=== PATIENT | female | born 1985 | race Caucasian/White ===

== ENCOUNTER 2021-03-12 20:19 | Emergency (ER) | payer OTHER, SELFPAY ==
[2021-03-12 20:29] VITALS: BP 124/89; PULSE 87; RESP 16; TEMP 36.6; O2SAT 98; BMI 28.3
--- NOTE | 2021-03-12 21:35 | ED_ITS ---
HPI - Dental/Oral General Chief complaint: Dental/Oral Stated complaint: tooth pain Time Seen by Provider: 03/12/21 21:34 History of Present Illness HPI Narrative: Patient complains of right lower dental pain for several weeks getting worse after dental procedure, no fever no swelling under the tongue no difficulty breathing or swallowing Related Data Previous Rx's Medication Instructions Recorded amoxicillin 875 mg-potassium 1 tab PO BID 7 Days #14 tab 03/12/21 clavulanate 125 mg tablet (Augmentin) ibuprofen 600 mg tablet 600 mg PO Q6H PRN #20 tab 03/12/21 oxycodone 5 mg tablet 5 mg PO Q6H PRN #10 tab 03/12/21 Allergies Allergy/AdvReac Type Severity Reaction Status Date / Time No Known Allergies Allergy Unverified 01/12/20 17:31 Review of Systems Review of Systems: Positive for toothache Negatives are no fever no chills no dizziness no weakness no headache no neck pain no sore throat no swelling under the tongue no drooling no difficulty breathing or swallowing no rash Yes all other systems are reviewed and are negative [facility] Past Medical History Source: nursing notes reviewed Medical History (Updated 03/13/21 @ 00:02 by Olimpia Landa) No known health problems Social History Social History Advance Directives: No Advance Directives Information Provided: No Physical Exam Vital Signs: Vital Signs: Last Vital Signs Temp 97.9 F 03/12/21 20:29 Pulse 87 03/12/21 20:29 Resp 16 03/12/21 20:29 BP 124/89 03/12/21 20:29 Pulse Ox 98 03/12/21 20:29 Body Mass Index 28.3 General appearance no acute distress The sinuses are nontender The pharynx is clear with no redness swelling or exudate There is a tender decayed right lower molar with no fluctuant gum abscess no significant facial swelling no impairment of breathing and swallowing no swelling under the tongue no trismus Neck is supple Respiratory no distress Skin no rash Course Course Course Narrative: Patient is prescribed antibiotic and analgesic and is advised to follow with a dentist Discharge Plan Discharge Clinical Impression: Toothache, Dental caries Patient Disposition: Home, Self-Care Additional Instructions: Follow as scheduled with her dentist Return any concerns Prescriptions: New ibuprofen 600 mg tablet 600 mg PO Q6H PRN (Reason: pain) Qty: 20 RF: 0 amoxicillin-pot clavulanate [Augmentin] 875-125 mg tablet 1 tab PO BID 7 Days Qty: 14 RF: 0 oxycodone 5 mg tablet 5 mg PO Q6H PRN (Reason: pain) Qty: 10 RF: 0 Discharge Date/Time: 03/12/21 22:26
[2021-03-12] MEDS: Ibuprofen 600 MG TABLET PO (22:22)
[2021-03-12] MEDS: Amoxicillin/Potassium Clav 875 MG TABLET PO (22:23)
[2021-03-12] MEDS: oxyCODONE HCl Immed Release 5 MG TABLET 10 MG PO (22:23)
== END 2021-03-12 22:26 | disposition home or self-care (01) ==
PROVIDERS: Emergency Provider Emergency Medicine; PCP Internal Medicine
DX: K02.9 Dental caries, unspecified (principal); Z79.899 Other long term (current) drug therapy
CPT/HCPCS: 99283